=== PATIENT | male | born 1985 | race African-American/Black ===

== ENCOUNTER 2016-08-09 19:44 | Emergency (ER) | payer OTHER ==
[~2016-08-09] VITALS: Ht 170.2 cm; Wt 93.0 kg
[~2016-08-09 19:44] MED LIST: NO HOME MEDICATIONS
[2016-08-09 19:47] VITALS: BP 131/88; TEMP 99.2
[2016-08-09 20:42] LABS: PH 6 (5-8); SQUAMOUS EPITHELIAL None Seen /hpf; URINE APPEARANCE Clear; URINE BACTERIA None Seen /hpf; URINE BILIRUBIN Negative (NEGATIVE); URINE BLOOD Negative (NEGATIVE); URINE COLOR Yellow; URINE GLUCOSE Negative (NEGATIVE); URINE KETONE Negative (NEGATIVE); URINE RBC 0-2 /hpf; URINE UROBILINOGEN Negative (NEGATIVE); URINE WBC 0-2 /hpf
[2016-08-09] MEDS ORDERED: NORCO 325 MG-51 TAB PO (22:19)
[2016-08-09 23:20] VITALS: PULSE 60
== END 2016-08-09 23:00 | disposition home or self-care (01) ==
LOC: COL.ER 19:44
PROVIDERS: Nurse Practitioner
DX: S29.012A Strain of muscle and tendon of back wall of thorax, initial encounter (principal); V43.52XA Car driver injured in collision with other type car in traffic accident, initial encounter; Y92.410 Unspecified street and highway as the place of occurrence of the external cause
CPT/HCPCS: J1885